=== PATIENT | female | born 1950 | race Caucasian/White ===

== ENCOUNTER → 2017-02-20 | Outpatient (CLI) | payer MEDICARE, BC ==
[~2017-02-20] MED LIST: ASPIR-LOW81 MG PO; CALCIUM500 MG PO; DECADRON-DPS1 MG PO; EYE VITAMINS PO; FLAX SEED OIL1000 MG PO; NORCO 5-325 TA1 EACH PO; THERA1 EACH PO; ZOFRAN ODT4 MG PO
== END | disposition home or self-care (01) ==
LOC: RAD.S 08:46
DX: Z12.31 Encounter for screening mammogram for malignant neoplasm of breast (principal); R92.1 Mammographic calcification found on diagnostic imaging of breast

== ENCOUNTER → 2017-05-12 | Outpatient (CLI) | payer MEDICARE, BC | END | disposition home or self-care (01) | LOC: RAD.S 08:13 | DX: D32.0 Benign neoplasm of cerebral meninges (principal); Z98.890 Other specified postprocedural states ==